=== PATIENT | male | born 1970 | race Two or more races ===

== ENCOUNTER 2024-06-19 16:08 | Emergency (ER) | payer OTHER ==
[~2024-06-19] VITALS: Ht 170.2 cm; Wt 85.0 kg
--- NOTE | 2024-06-19 17:09 | DVH ---
XY CHEST TWO VIEWS ROUTINE CLINICAL HISTORY: left shoulder pain COMPARISON: None TECHNIQUE: Frontal and lateral view of the chest was obtained FINDINGS: Lines and Tubes: None Lungs: No focal consolidation. Pleura: No effusion. No pneumothorax. Cardiomediastinal contours: Unremarkable Bones: No acute osseous abnormality. IMPRESSION: 1. No acute cardiopulmonary disease.
--- NOTE | 2024-06-19 17:12 | DVH ---
CLINICAL INDICATION: trauma TECHNIQUE: 3 views of the left shoulder XY L SHOULDER 2+ VIEW XRAY Comparison: None FINDINGS/IMPRESSION: There is no evidence of acute fracture or dislocation. Soft tissues are unremarkable.
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
--- NOTE | 2024-06-19 17:49 | ECG ---
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
[2024-06-19] MEDS: KETOROLAC TROMETH 30 MG/ML 1ML VIAL IV ONE (18:03)
[2024-06-19] MEDS: cloNIDine HCL 0.1 MG TAB PO ONE (18:06)
[2024-06-19 18:13] VITALS: BP 203/128; PULSE 98; RESP 18; TEMP 98.9; O2SAT 99
[2024-06-19] MEDS ORDERED: TRAM50TA2 PO (18:19)
== END 2024-06-19 19:13 | disposition home or self-care (01) ==
LOC: EDBD 16:08 → ER 16:08
DX: S46.912A Strain of unspecified muscle, fascia and tendon at shoulder and upper arm level, left arm, initial encounter (principal); R07.89 Other chest pain; F12.90 Cannabis use, unspecified, uncomplicated; V49.88XA Car occupant (driver) (passenger) injured in other specified transport accidents, initial encounter; Y93.89 Activity, other specified; Y92.89 Other specified places as the place of occurrence of the external cause; Y99.8 Other external cause status
CPT/HCPCS: 71046; 73030; 93005; 96374; 99284; J1885